=== PATIENT | female | born 1975 ===

== ENCOUNTER → 2018-09-07 | Outpatient (CLI) | payer OTHER ==
[~2018-09-07] MED LIST: AMLO-127 PO; LOSA-54 PO; METO-253 PO
== END ==
LOC: LAB 16:48
PROVIDERS: ATTEND Emergency Medicine
DX: I10 Essential (primary) hypertension (principal); R94.6 Abnormal results of thyroid function studies
CPT/HCPCS: 36415; 82310; 82374; 82435; 82565; 82947; 84132; 84295; 84439; 84443; 84481; 84520; 86376; 86800